=== PATIENT | female | born 1960 | race American Indian/Alaskan Native ===

== ENCOUNTER 2021-10-26 17:18 | Emergency (ER) | payer BC ==
[2021-10-26] MEDS ORDERED: HYDROcodone/ACETAMINOPHEN 5-325 MG TAB PO STA (20:46)
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
--- NOTE | 2021-10-26 22:03 | XRay Report ---
Lumbar spine 3 views INDICATION: Low back pain following injury IMPRESSION: Mild loss of vertebral body height identified T11 and T12 may be chronic as there is prom inent discogenic degenerative change noted at both levels. Moderate bilateral neural foraminal stenos is present at L5-S1 secondary to facet and discogenic degenerative arthropathy. No distinct fracture of the lumbar spine identified. Signer Name: Antonio Wright MD Signed: 10/26/2021 9:58 PM Workstation Name: [id number]
[2021-10-26 23:06] VITALS: BP 129/84
== END 2021-10-26 23:07 | disposition home or self-care (01) ==
LOC: ED 17:18
DX: M54.50 Low back pain, unspecified (principal); M48.061 Spinal stenosis, lumbar region without neurogenic claudication; Z91.018 Allergy to other foods; F17.200 Nicotine dependence, unspecified, uncomplicated; V89.2XXA Person injured in unspecified motor-vehicle accident, traffic, initial encounter; Y93.89 Activity, other specified; Y92.89 Other specified places as the place of occurrence of the external cause; Y99.8 Other external cause status
CPT/HCPCS: 72100; 99283